=== PATIENT | male | born 1950 | race Caucasian/White ===

== ENCOUNTER → 2024-11-11 15:02 | Outpatient (REF) | payer MEDICARE, OTHER, SELFPAY | LOC: HWRAD 15:02 | PROVIDERS: ATTENDING PHYSICIAN Internal Medicine Pulmonary Disease; FAMILY PHYSICIAN Internal Medicine | DX: R91.1 Solitary pulmonary nodule (principal) | CPT/HCPCS: 71250 ==

== ENCOUNTER → 2025-01-27 09:53 | Outpatient (REF) | payer MEDICARE, OTHER, SELFPAY | LOC: HWRCS 09:53 | PROVIDERS: ATTENDING PHYSICIAN Internal Medicine | DX: R60.0 Localized edema (principal) | CPT/HCPCS: 93306 ==